=== PATIENT | female | born 1970 ===

== ENCOUNTER 2018-10-25 12:40 | Emergency (ER) | payer MEDICAID, OTHER ==
[~2018-10-25] VITALS: Ht 157.5 cm; Wt 61.6 kg
[~2018-10-25 12:40] MED LIST: DIAZ5TAB PO; HYDR25TA6 PO; IBUP-1542 PO
[2018-10-25 12:49] VITALS: Ht 157.5 cm; Wt 61.6 kg
[2018-10-25] MEDS ORDERED: IBUP800T48 PO (13:39)
--- NOTE | 2018-10-25 13:41 | ERD ---
ER Documentation Chief Complaint Chief Complaint left ear pain & sorethroat x5 days HPI This is a 48-year-old female who presents with left-sided ear pain and sore throat for about 5 days. No fever. She has been taking Motrin at home. She also has a dry cough. Her symptoms are worse at night. No nausea or vomiting. ROS All systems reviewed and are negative except as per history of present illness. Medications Home Meds Active Scripts Ibuprofen* (Motrin*) 800 Mg Tab, 800 MG PO Q6, #30 TAB Prov:TAN VILLAFANA PA-C 10/25/18 Hydrochlorothiazide* (Hydrochlorothiazide*) 25 Mg Tab, 50 MG PO DAILY, #30 TAB Prov:CAMMIE JORGENSEN PA-C 07/05/16 Diazepam* (Valium*) 5 Mg Tablet, 5 MG PO Q8 PRN for MUSCLE SPASMS, #10 TAB Prov:CAMMIE JORGENSEN PA-C 07/05/16 Ibuprofen* (Motrin*) 600 Mg Tab, 600 MG PO Q6H PRN for PAIN AND OR ELEVATED TEMP, #30 TAB Prov:CAMMIE JORGENSEN PA-C 07/05/16 PMhx/Soc History of Surgery: Yes () Anesthesia Reaction: No Hx Neurological Disorder: No Hx Respiratory Disorders: No Hx Cardiac Disorders: Yes (HTN) Hx Psychiatric Problems: No Hx Miscellaneous Medical Probl: Yes (ANXIETY) Hx Alcohol Use: No Hx Substance Use: No Hx Tobacco Use: No Smoking Status: Never smoker FmHx Family History: No diabetes Physical Exam Vitals Vital Signs Date Temp Pulse Resp B/P (MAP) Pulse Ox O2 O2 Flow FiO2 Time Delivery Rate 10/25/18 97.8 102 18 146/92 97 12:49 (110) Physical Exam INITIAL VITAL SIGNS: Reviewed by me GENERAL: Awake, alert and oriented x 4, well appearing, nontoxic, speaking in full sentences. No acute distress HEAD: Atraumatic NECK: Supple. No masses. Full range of motion. No meningismus. No midline tenderness. EYES: EOMI. PERRL. EAR: No tenderness over the mastoids bilaterally. No exudates in the canals. TMs nonerythematous. NOSE: Normal nose. THROAT: No tonilar erythema or edema. No exudates. Uvula midline. No kissing to nsils. RESPIRATORY: Clear to auscultation bilaterally. Symmetric chest wall rise. No wheezing or rales. No accessory muscle use. CV: Regular rate and rhythm. No murmurs, rubs, or gallops. Procedures/MDM Patient has ear pain and throat pain and mild cough. Likely viral infection. Vitals are stable she has no fever. I doubt she has pneumonia or any other b acterial infection which would require antibiotics. She is given a prescription for Motrin and should continue to take Tylenol and/or Motrin. Patient counseled regarding my diagnostic impression and care plan. Prior to discharge all questions answered. Pt agrees with treatment plan and understands strict return precautions. Pt is instructed to follow up with primary care provider within 24- 48 hours. Precautionary instructions provided including instructions to return to the ER if not improving or for any worsening or changing symptoms or concerns. Departure Diagnosis: Primary Impression: URI (upper respiratory infection) Condition: Stable Patient Instructions: Preventing Common Respiratory Infections Additional Instructions: Llame al doctor MAX y sushma zoey HUNTER PARA DENTRO DE 1-2 BOYCE.Dgale a la secretaria que nosotros le instruimos hacer esta hunter.Avise o llame si lux condicin se empeora antes de la hunter. Regresa aqui si peor o no mejor. TAN VILLAFANA PA-C Oct 25, 2018 13:41
[2018-10-25 13:55] VITALS: BP 137/93; PULSE 98; RESP 20
== END 2018-10-25 13:55 | disposition home or self-care (01) ==
LOC: FTE 12:40
DX: J06.9 Acute upper respiratory infection, unspecified (principal); I10 Essential (primary) hypertension
CPT/HCPCS: 99282